=== PATIENT | male | born 1990 | race Caucasian/White ===

== ENCOUNTER → 2020-07-26 15:00 | Outpatient (BNVA) | payer BC, SELFPAY | PROVIDERS: Family Provider Family Medicine; PCP Family Medicine; Visit Provider Family Medicine | DX: R50.9 Fever, unspecified (principal); J40 Bronchitis, not specified as acute or chronic | CPT/HCPCS: 87400; 87635 ==

== ENCOUNTER → 2020-11-21 14:40 | Outpatient (BNVA) | payer BC, SELFPAY | PROVIDERS: Family Provider Family Medicine; PCP Family Medicine; Visit Provider Nurse Practitioner Family | DX: Z20.822 Contact with and (suspected) exposure to COVID-19 (principal) | CPT/HCPCS: 87635 ==

== ENCOUNTER 2020-12-06 15:31 | Inpatient (IN) | payer MEDICAID, SELFPAY ==
[2020-12-06 16:09] VITALS: BP 150/108; PULSE 88; RESP 18; TEMP 36.9; O2SAT 97; BMI 28.3
[2020-12-06 17:15] LABS: Basophils # 0.1 10^3/uL (0.0-0.1); Basophils % 0.6 %; Hematocrit 57.3 % (42.0-52.0); Hemoglobin 20.4 g/dL (11.7-16.6); Lymphocytes # 1.2 10^3/uL (0.8-4.8); Lymphocytes % 13.7 %; Mean Corpuscular HGB Conc 35.6 g/dL (30.0-36.0); Mean Corpuscular Hemoglobin 35.6 pg (28.0-34.0); Mean Platelet Volume 10.4 fL (7.4-10.4); Monocytes # 0.9 10^3/uL (0.2-0.9); Monocytes % 10.9 %; Neutrophils # 6.33 10^3/uL (1.8-7.7); Neutrophils % 74.3 %; Nucleated Red Blood Cells % 0 %; Platelet Count 129 10^3/cmm (130-400); Red Blood Count 5.73 10^6/uL (4.1-5.3); Red Cell Distribution Width 12.2 % (12.1-15.1); White Blood Count 8.5 10^3/uL (4.0-10.0)
[2020-12-06] MEDS: sodium chloride 0.9% 1,000 ML 999 ML IV (17:15)
[2020-12-06 17:22] VITALS: BP 145/102; PULSE 83; RESP 15; O2SAT 96
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
[2020-12-06 17:40] LABS: Add Urine Microscopic? YES; Bacteria Urine TRACE /hpf; Bilirubin Urine 2+ (Negative); Blood Urine Neg (Negative); Glucose Urine UA Norm (Normal); Ketones Urine 1+ (Negative); Leukocyte Esterase Urine Trace (Negative); Mucus Urine 1+ /hpf; Nitrate Urine Negative (Negative); Protein Urine Neg (Negative); Urine Appearance Clear (CLEAR); Urine Color Orange (Yellow); Urobilinogen Urine 4+ mg/dL (Negative); WBC Urine 0-4 /hpf (0-5); pH Urine 7 (5-7)
[2020-12-06 17:41] LABS: Add Urine Culture? No
[2020-12-06 17:45] LABS: Alanine Aminotransferase 233 U/L (0-41); Albumin Level 4.2 g/dL (3.5-5.2); Alkaline Phosphatase 110 IU/L (40-130); Anion Gap 16.5 (5-19); Aspartate Amino Transferase 341 U/L (0-40); Blood Urea Nitrogen 6 mg/dL (6-20); Calcium 9.3 mg/dL (8.5-10.5); Carbon Dioxide 29 mmol/L (22-29); Chloride 99 mmol/L (98-107); Globulin 2.5 g/dL (1.3-4.6); Glomerular Filtration Rate 160.4 mL/min (90-130); Glucose 98 mg/dL (65-115); Lipase 23 U/L (13-60); Magnesium 1.4 mg/dL (1.7-2.3); Osmolality Calculated 290 mOsm/kg (285-295); Potassium 3.5 mmol/L (3.5-5.1); Sodium 141 mmol/L (136-145); Total Bilirubin 5.3 mg/dL (0.15-1.2); Total Protein 6.7 g/dL (6.6-8.7)
[2020-12-06 17:46] LABS: Acetaminophen < 5.0 ug/mL (10-30); Alcohol Level < 10 mg/dL (0-10); Salicylate < 0.3 mg/dL (3-10)
[2020-12-06 17:49] LABS: Creatine Phosphokinase 457 U/L (39-308)
[2020-12-06 18:24] LABS: INR 1.16 (0.8-1.2)
[2020-12-06 18:25] LABS: Partial Thromboplastin Time 32.4 SECONDS (23.9-36.7)
[2020-12-06 18:32] LABS: Ammonia 54 umol/L (16-60)
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
[2020-12-06 19:36] LABS: Hepatitis A Antibody IgM Non-Reactive (Nonreactive); Hepatitis B Core AB, Total Non-Reactive (Nonreactive); Hepatitis B Surface AB 114.4 (11.5-1000); Hepatitis B Surface Antigen Non-Reactive (Nonreactive); Hepatitis C Virus Antibody Non-Reactive (Nonreactive)
[2020-12-06 20:04] VITALS: BP 152/102; PULSE 80; RESP 15; O2SAT 97
[2020-12-06 21:43] LABS: Magnesium 1.5 mg/dL (1.7-2.3)
[2020-12-06 21:59] LABS: Folate Level 2.4 ng/mL (4.5-32.2)
[2020-12-06 22:06] LABS: Amphetamines Screen Urine Negative (Negative); Barbiturates Screen Urine Negative (Negative); Benzodiazepines Screen Urine Negative (Negative); Cocaine Screen Urine Negative (Negative); Opiate Screen Urine Negative (Negative); PCP Screen Urine Negative (Negative); THC Screen Urine Negative (Negative)
[2020-12-07] VITALS (7 sets, daily range): BP systolic 126–161; BP diastolic 82–140; PULSE 59–80; RESP 15–23; TEMP 36.4–36.9; O2SAT 96–97
[2020-12-07] MEDS: LORazepam 2 mg Tablet PO (00:27)
[2020-12-07] MEDS: enoxaparin 40 mg/0.4 mL Syringe SUBCUT (00:28)
[2020-12-07] MEDS: sodium chloride 0.9% 1,000 ML 75 ML IV (00:28)
[2020-12-07] MEDS: chlordiazePOXIDE 25 mg Capsule 50 MG PO (00:45)
[2020-12-07 04:24] LABS: Basophils % 0.5 %; Eosinophils % 0.7 %; Hematocrit 52.4 % (42.0-52.0); Hemoglobin 18.1 g/dL (11.7-16.6); Lymphocytes % 32.7 %; Mean Corpuscular HGB Conc 34.5 g/dL (30.0-36.0); Mean Corpuscular Hemoglobin 35.8 pg (28.0-34.0); Mean Corpuscular Volume 103.8 fL (80-94); Mean Platelet Volume 11.1 fL (7.4-10.4); Monocytes # 0.7 10^3/uL (0.2-0.9); Monocytes % 11.3 %; Neutrophils # 3.27 10^3/uL (1.8-7.7); Neutrophils % 54.5 %; Nucleated Red Blood Cells % 0 %; Platelet Count 108 10^3/cmm (130-400); Red Blood Count 5.05 10^6/uL (4.1-5.3); Red Cell Distribution Width 12.4 % (12.1-15.1)
[2020-12-07 04:52] LABS: Anion Gap 12.1 (5-19); Blood Urea Nitrogen 8 mg/dL (6-20); Calcium 8.8 mg/dL (8.5-10.5); Carbon Dioxide 30 mmol/L (22-29); Chloride 101 mmol/L (98-107); Glomerular Filtration Rate 160.4 mL/min (90-130); Glucose 72 mg/dL (65-115); Osmolality Calculated 287 mOsm/kg (285-295); Potassium 3.1 mmol/L (3.5-5.1); Sodium 140 mmol/L (136-145)
--- NOTE | 2020-12-07 07:46 | P.PN_ITS ---
Vitals/I&O/Wt Last Vital Signs Temp 97.6 F 12/07/20 07:41 Pulse 76 12/07/20 07:41 Resp 17 12/07/20 07:41 BP 161/140 12/07/20 07:41 Pulse Ox 97 12/07/20 07:41 12/06/20 12/07/20 12/07/20 22:59 06:59 14:59 Intake Total 1000 / 1000 202 / 1202 Balance 1000 / 1000 202 / 1202 Weight last 48 hrs Weight 94.801 kg Data : 12/07/20 03:25 12/07/20 03:25 A&P Assessment and plan (1) Hematemesis: Status: Acute (2) Alcohol intoxication: Status: Acute (3) Polycythemia: Status: Acute Additional A&P Information Alcohol withdrawal Last alcoholic drink was around midnight yesterday Patient has been drinking heavily for last 4 years, he wants to quit and change his lifestyle, Admit to RAQU[facility] Saba protocol Start Librium and IV as needed Ativan Hypomagnesemia related to alcoholism: Magnesium repleted, Polycythemia with macrocytosis: This most likely related to alcohol abuse, will start normal saline recheck CBC in the morning, check folate level no history of stroke I would not start aspirin, will need outpatient hematology follow-up, hemoglobin consistently stays above 16, requested erythropoietin level Abnormal transaminases secondary to alcohol hepatic steatosis no active signs of jaundice, patient is endorsing drinking red monster, he is denying hematemesis or hemoptysis, no need of endoscopy at this point, I would cancel GS consult for now, he is hemodynamically stable, hepatitis panel negative, no previous history of portal hypertension, no stigmata of chronic liver disease Full code Cardiac diet DVT prophylaxis Lovenox Coding Level of Care Code Acute 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
[2020-12-07] MEDS: folic acid 1 MG, multivitamin inj 10 ML, thiamine 100 MG in sodium chloride 0.9% 1,000 ML 252.8 MG IV (09:55)
[2020-12-07] MEDS: multivitamin therapeutic Tablet 1 TAB PO (10:00)
[2020-12-07] MEDS: amlodipine 10 mg Tablet PO (10:03)
[2020-12-07] MEDS: potassium chloride ER 20 mEq Tablet 80 MEQ PO (10:04)
[2020-12-07] MEDS: magnesium oxide 400 mg tablet PO (10:05)
[2020-12-07] MEDS: folic acid 1 mg Tablet PO ×2 (10:05→10:11)
[2020-12-07 10:15] LABS: Procalcitonin 0.16 ng/mL (0-0.5); Thyroid Stimulating Hormone 1.39 uIU/mL (0.27-4.20); Vitamin B12 498 pg/mL (232-1245)
[2020-12-07 10:25] LABS: Magnesium 1.8 mg/dL (1.7-2.3)
[2020-12-07] MEDS: thiamine 100 mg Tablet PO (10:25)
--- NOTE | 2020-12-07 10:35 | PC.CHAP ---
Pastoral Care Encounter/Spiritual Assessment Type of Contact [] Declined vehicle body maker visit [] Patient/Family/Request visit [] Outpatient visit [] Follow-up visit [] Physician referral [] Code/Alert [x] Routine visit [] Staff referral [] Actively dying [] Patient sleeping [] Family support [] [] Out of room [] Palliative care [] [] Receiving care in room [] Pre-surgical visit [] Trauma [] Long length of stay [] ICU visit [] Other: Relational/Emotional Strength [] Patient feels connected with others/family/visitors/staff [] Distress [] Loneliness/isolation [] Abandonment Spirituality of Patient [] Person of Kadi [] Attends Buddhism of their Kadi [] Believes in Prayer [] Reads Bible or Hoahaoism materials [] There are Spiritual issues to be addressed Film Mounter Interventions [x] Prayer [x] Active listening [x] Non-anxious presence [x] Spiritual/emotional support [] Crisis/trauma care [] Spiritual counseling [] Bereavement support [] Provided bereavement packet [] Provided Bible/devotional materials [] Provided toy/stuffed animal, coloring book to patient or family member [] Provided Communion [] Anointing/[place] [] Salvation [x] Completed spiritual assessment [] Other: Impact on Illness or Injury [] Angry [] Fearful [] Anxious [] Often cries [] Exhaustion [] Unable to work [] Unable to attend jew [] Unable to walk/stand [] Unable to read [] Unable to drive [] Unable to eat/drink [] Unable to sleep [] Unable to be with family [] Patient intubated [] Other: Summary patient willing to discuss issues... sending male vehicle body maker.. Time spent with patient 10 min
[2020-12-07 10:38] LABS: Iron 265 ug/dL (59-158); Unsaturated Iron Binding < 17 ug/dL (112-347)
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
--- NOTE | 2020-12-07 14:50 | PC.NURSE ---
discharge instructions given and explained.pt verb understanding of instructions.prescriptions furnished by [facility]..meds to beds program.discharged ambulatory to exit.pt's mother to drive pt home.
--- NOTE | 2020-12-07 16:35 | PC.RESP ---
Smoking Cessation information sent to patient.
[2020-12-08 17:39] LABS: Erythropoietin 5.2 mIU/mL (2.6-18.5)
== END 2020-12-07 14:55 | disposition home or self-care (01) | DRG 897 ==
LOC: ER 19:02 → CSU 22:26
PROVIDERS: Family Medicine; Admitting Provider Internal Medicine; Emergency Provider Emergency Medicine; Visit Provider Student in an Organized Health Care Education/Training Program
DX: F10.239 Alcohol dependence with withdrawal, unspecified (principal); D75.1 Secondary polycythemia; E83.42 Hypomagnesemia; D75.89 Other specified diseases of blood and blood-forming organs; R74.01 Elevation of levels of liver transaminase levels; E80.6 Other disorders of bilirubin metabolism; F17.210 Nicotine dependence, cigarettes, uncomplicated; Y90.0 Blood alcohol level of less than 20 mg/100 ml; I10 Essential (primary) hypertension
CPT/HCPCS: 36415; 76705; 80048; 80053; 80306; 80307; 81001; 82140; 82550; 82607; 82668; 82746; 83540; 83550; 83690; 83735; 84145; 84443; 85025; 85610; 85730; 86705; 86706; 86709; 86803; 87340; 96360; 96372; 99285; J1650; J3411; J3475; J3490; J7030

== ENCOUNTER → 2024-07-28 10:30 | Outpatient (BNVA) | payer MEDICAID, SELFPAY | PROVIDERS: PCP Nurse Practitioner Family; Visit Provider Nurse Practitioner Family | DX: I10 Essential (primary) hypertension (principal) | CPT/HCPCS: 80053; 80061; 85025 ==

== ENCOUNTER → 2024-08-24 16:12 | Outpatient (BNVA) | payer MEDICAID, SELFPAY | PROVIDERS: PCP Nurse Practitioner Family; Visit Provider Nurse Practitioner Family | DX: F10.929 Alcohol use, unspecified with intoxication, unspecified (principal) | CPT/HCPCS: 80053; 80307 ==

== ENCOUNTER → 2024-09-07 13:00 | Outpatient (BNVA) | payer MEDICAID, SELFPAY | PROVIDERS: PCP Nurse Practitioner Family; Visit Provider Nurse Practitioner Family | DX: R74.8 Abnormal levels of other serum enzymes (principal) | CPT/HCPCS: 80053 ==

== ENCOUNTER 2024-10-13 19:35 | Inpatient (IN) | payer MEDICAID, SELFPAY ==
[2024-10-13 19:43] VITALS: BP 150/91; PULSE 102; TEMP 36.2; O2SAT 98; BMI 30.3
--- NOTE | 2024-10-13 19:55 | W.ED.PSYCHS ---
HPI - Psych General: Chief Complaint: Psychiatric Symptoms Stated Complaint: MHE Time Seen by Provider: 10/13/24 19:36 Source: patient Mode of arrival: ambulatory Limitations: no limitations History of Present Illness: 33-year-old male with history of alcohol abuse does appear brought by his brother has been having increased alcohol use along with self-harm patient had has depression he denies being SI but he does have multiple fresh lacerations to his left forearm and does admit to cutting himself. Associated symptoms: Reports depression Related Data Previous Rx's ?Medication ?Instructions ?Recorded ibuprofen 800 mg tablet 800 mg PO Q8H PRN pain #20 tabs 12/04/23 lisinopril 10 mg tablet 10 mg PO DAILY #90 tabs 09/07/24 naltrexone 50 mg tablet 50 mg PO DAILY #90 tabs 09/07/24 Allergies Allergy/AdvReac Type Severity Reaction Status Date / Time No Known Allergies Allergy Verified 10/13/24 19:49 Review of Systems Const: Denies: fever(s), chills, body aches or change in appetite ENMT: Denies: throat pain or dental pain Card: Denies: chest pain Resp: Denies: dyspnea GI: Denies: abdominal pain, nausea, vomiting or diarrhea Musc: Denies: neck pain or back pain Skin/Breast: Denies: rash Neuro: Denies: headache(s) Psych: Reports: depression [facility] PFSH: Medical History Hematemesis Bronchitis Surgical History No pertinent past surgical history Family History Other No pertinent family history Social History Smoking and tobacco/nicotine status: current every day tobacco/nicotine user cigarettes [ Other cigarette details: 2 pack a day] Alcohol intake: current Alcohol intake frequency: holidays/special occasions only Substance/Drug Use: never Household members: spouse Housing: House Current occupational status: unemployed 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 [employer] Physical Exam Const: COMMON NORMALS: no acute distress, patient oriented x3 and healthy appearing HENMT: COMMON NORMALS: normocephalic and atraumatic HEAD & SCALP: normocephalic and atraumatic Eye: COMMON NORMALS: conjunctivae normal CONJUNCTIVA: Yes conjunctivae normal Neck/C-Spine: COMMON NORMALS: full ROM and supple Chest: COMMONS NORMALS: normal inspection of the chest Resp: COMMON NORMALS: normal respiratory effort Cardio: COMMON NORMALS: regular rate RATE: regular rate Extremity: COMMON NORMALS: full ROM Neuro: COMMON NORMALS: patient oriented x3, moves all extremities and no focal motor deficits Psych: COMMON NORMALS: mental status grossly normal ATTITUDE: Yes Belligerent attititude/behavior present and Yes agitated Skin: NARRATIVE SKIN EXAM: Multiple lacerations noted to left forearm largest being roughly 5 cm Course Vital Signs: Vital signs: Vital Signs Temperature 97.2 F L 10/13/24 19:43 Pulse Rate 107 H 10/13/24 21:11 Respiratory Rate 18 10/13/24 21:11 Blood Pressure 140/74 10/13/24 21:11 Pulse Oximetry 98 10/13/24 21:11 Oxygen Delivery Me thod Room Air 10/13/24 19:43 MDM - Psych Medical Decision Making Patient presents here with alcohol intoxication along with suicidal ideation he does have a laceration to his left forearm it appears old too old to suture will let it heal by secondary intention did Steri-Strip will admit to [facility] at this time Medical Records I reviewed the patient's medical records. Lab Data I reviewed the patient's lab results. 10/13/24 20:32 10/13/24 20:32 Laboratory Results WBC 6.55 10^3/uL (3.29-11.43) 10/13/24 20:32 RBC 5.03 10^6/uL (3.85-5.65) 10/13/24 20:32 Hgb 15.00 g/dL (11.27-16.99) 10/13/24 20:32 Hct 44.6 % (37-53) 10/13/24 20:32 MCV 88.7 fl (82-101) 10/13/24 20:32 MCH 29.8 pg (27-33) 10/13/24 20:32 MCHC 33.6 g/dL (30-55) 10/13/24 20:32 RDW 13.8 % (12.1-15.1) 10/13/24 20:32 Plt Count 179 10^3/cmm (157-399) 10/13/24 20:32 MPV 9.9 fL (7.4-10.4) 10/13/24 20:32 Neut % (Auto) 50.1 % 10/13/24 20:32 Lymph % (Auto) 42.4 % 10/13/24 20: [place] % (Auto) 6.4 % 10/13/24 20: Eos % (Auto) 0.3 % 10/13/24 20:32 Baso % (Auto) 0.5 % 10/13/24: Neut # (Auto) 3.28 10^3/uL (1.8-7.7) 10/13/24: Lymph # (Auto) 2.8 10^3/uL (0.8-4.8) 10/13/24 20: [place] # (Auto) 0.4 10^3/uL (0.2-0.9) 10/13/24: Eos # (Auto) 0.0 10^3/uL (0.0-0.8) 10/13/24: Baso # (Auto) 0.0 10^3/uL (0.0-0.1) 10/13/24: Nucleated RBC % (auto) 0 % 10/13/24: Nucleated RBCs # 0.0 /100WBC 10/13/24 20:32 Sodium 144 mmol/L (136-145) 10/13/24 20: Potassium 3.5 mmol/L (3.5-5.1) 10/13/24 20: Chloride 108 mmol/L (98-107) H 10/13/24 20:32 BUN 8 mg/dL (6-20) 10/13/24 20:32 Creatinine 0.9 mg/dL (0.7-1.2) 10/13/24 20: GFR Calculation 98.4 mL/min (90-130) 10/13/24 20: Glucose 108 mg/dL (65-115) 10/13/24 20:32 Calculated Osmolality 297 mOsm/kg (285-295) H 10/13/24 20: Calcium 8.7 mg/dL (8.5-10.5) 10/13/24 20:32 Total Bilirubin 1.1 mg/dL (0.15-1.2) 10/13/24 20:32 AST 41 U/L (0-40) H 10/13/24 20:32 ALT 63 U/L (0-41) H 10/13/24 20:32 Alkaline Phosphatase 70 U/L (40-130) 10/13/24 20:32 Total Protein 7.3 g/dL (6.6-8.7) 10/13/24 20:32 Albumin 4.4 g/dL (3.5-5.2) 10/13/24 20:32 Globulin 2.9 g/dL (1.3-4.6) 10/13/24 20:32 Salicylates < 0.3 mg/dL (3-10) L 10/13/24 20:32 Acetaminophen < 5.0 ug/mL (10-30) L 10/13/24 20:32 Ethyl Alcohol 275 mg/dL (0-10) H 10/13/24 20:32 No radiology studies performed this visit Discharge Plan Discharge Patient Disposition: Admitted As Inpatient Admit Provider: Jimi Kim Clinical Impression: Alcohol abuse, Suicidal ideation Condition: Stable Coding Level of Care Code ED Rib Knitter for [facility]
[2024-10-13] MEDS: LORazepam 2 mg/mL INJ 1 mL 1 MG IM (20:43)
[2024-10-13] MEDS: nicotine 21 mg Patch 1 PATCH TRANSDERMA (20:43)
[2024-10-13 20:52] LABS: Alanine Aminotransferase 63 U/L (0-41); Albumin Level 4.4 g/dL (3.5-5.2); Alcohol Level 275 mg/dL (0-10); Alkaline Phosphatase 70 U/L (40-130); Aspartate Amino Transferase 41 U/L (0-40); Blood Urea Nitrogen 8 mg/dL (6-20); Calcium 8.7 mg/dL (8.5-10.5); Chloride 108 mmol/L (98-107); Creatinine Clr Calc Pharmacy 150.8345; Globulin 2.9 g/dL (1.3-4.6); Glomerular Filtration Rate 98.4 mL/min (90-130); Glucose 108 mg/dL (65-115); Osmolality Calculated 297 mOsm/kg (285-295); Potassium 3.5 mmol/L (3.5-5.1); Sodium 144 mmol/L (136-145); Total Bilirubin 1.1 mg/dL (0.15-1.2); Total Protein 7.3 g/dL (6.6-8.7)
--- NOTE | 2024-10-13 20:54 | PC.NURSE ---
When pt was told that he would be placed on a 96 hour hold he began to become verbally aggressive, wanting to leave. [employer] supervisor and security was contacted. [employer] supervisor was able to talk with the pt and educate him on the reasons of why we have him on a hold. pt calmed down, changed into scrubs and allowed us to take blood and urine. pt is currently sitting in the pineda recliner eating a sandwich.
[2024-10-13 20:57] LABS: Basophils % 0.5 %; Eosinophils % 0.3 %; Hematocrit 44.6 % (37-53); Lymphocytes # 2.8 10^3/uL (0.8-4.8); Lymphocytes % 42.4 %; Mean Corpuscular HGB Conc 33.6 g/dL (30-55); Mean Corpuscular Hemoglobin 29.8 pg (27-33); Mean Corpuscular Volume 88.7 fl (82-101); Mean Platelet Volume 9.9 fL (7.4-10.4); Monocytes # 0.4 10^3/uL (0.2-0.9); Monocytes % 6.4 %; Neutrophils # 3.28 10^3/uL (1.8-7.7); Neutrophils % 50.1 %; Nucleated Red Blood Cells % 0 %; Platelet Count 179 10^3/cmm (157-399); Red Blood Count 5.03 10^6/uL (3.85-5.65); Red Cell Distribution Width 13.8 % (12.1-15.1); White Blood Count 6.55 10^3/uL (3.29-11.43)
[2024-10-13 20:58] LABS: Acetaminophen < 5.0 ug/mL (10-30); Salicylate < 0.3 mg/dL (3-10)
--- NOTE | 2024-10-13 20:58 | PC.NURSE ---
96 Hour Hold Pt served with copy of 96 HH by this RN and security. Pt alert and oriented. After extensive 1:1 conversation, pt stated the he did cut himself on his left forearm.
--- NOTE | 2024-10-13 21:04 | PC.NURSE ---
Pt has a an approximately 5cm lac on his left forearm. the laceration was cleaned with betadine and peroxide. steri strips were applied.
[2024-10-13 21:11] VITALS: BP 140/74; PULSE 107; RESP 18; O2SAT 98
[2024-10-13 21:19] VITALS: BP 154/70; PULSE 106; RESP 18; TEMP 36.6; O2SAT 98
[2024-10-13 22:00] VITALS: BP 154/70; PULSE 106; RESP 18; TEMP 36.6; O2SAT 98
[2024-10-13 22:09] LABS: Amphetamines Screen Urine Negative (Negative); Barbiturates Screen Urine Negative (Negative); Benzodiazepines Screen Urine Negative (Negative); Cocaine Screen Urine Negative (Negative); Opiate Screen Urine Negative (Negative); PCP Screen Urine Negative (Negative); THC Screen Urine Negative (Negative)
[2024-10-13 22:37] LABS: Anion Gap 18.5 (5-19); Carbon Dioxide 21 mmol/L (22-29)
--- NOTE | 2024-10-13 23:33 | PC.ADMIT ---
[address] [facility] Ad[facility] Note: The patient,Farhad Dewitt,33 y/o, was given written information regarding hospital policies, unit procedures and contact persons. Patient's smoking status: current every day smoker. Vital Signs - 8 hr 10/13/24 19:43 10/13/24 21:11 10/13/24 21:19 Temperature 97.2 F L 97.9 F Pulse Rate 102 H 107 H 106 H Respiratory Rate 18 18 Blood Pressure 150/91 140/74 154/70 Pulse Oximetry 98 98 98 Oxygen Delivery Method Room Air Room Air 10/13/24 21:22 10/13/24 22:00 Temperature 97.9 F Pulse Rate 106 H Respiratory Rate 18 Blood Pressure 154/70 Pulse Oximetry 98 Oxygen Delivery Method Room Air Room Air Pt. came into the ER because he was looking for the crisis center, but it was closed. Pt. has a 5cm cut on his left FA, it is not deep. Pt. was drinking a lot tonight and stated he does have a problem with alcohol and would like help to quit, but he does not want to to inpatient to get the help. Pt. says he is a single father with full custody of his 3 children, says he has a great support system (his parents). In report the ER nurse said that at first pt. was very upset about being placed on a 96 hr hold, but calmed down and later apologized for his behavior. His alcohol level was 275.
--- NOTE | 2024-10-13 23:37 | PC.NURSE ---
Pt. came into the ER because he was looking for the crisis center, but it was closed. Pt. has a 5cm cut on his left FA, it is not deep. Pt. was drinking a lot tonight and stated he does have a problem with alcohol and would like help to quit, but he does not want to to inpatient to get the help. Pt. says he is a single father with full custody of his 3 children, says he has a great support system (his parents). In report the ER nurse said that at first pt. was very upset about being placed on a 96 hr hold, but calmed down and later apologized for his behavior. His alcohol level was 275.
[2024-10-14] VITALS: BP 109/66; PULSE 110; RESP 18; TEMP 36.7; O2SAT 96
[2024-10-14 04:00] VITALS: BP 128/77; PULSE 89; RESP 18; TEMP 36.5; O2SAT 96
[2024-10-14 07:51] VITALS: BP 142/90; PULSE 83; RESP 16; TEMP 36.8; O2SAT 95
[2024-10-14] MEDS: folic acid 1 mg Tablet PO (08:27)
[2024-10-14] MEDS: multivitamin therapeutic Tablet 1 TAB PO (08:27)
[2024-10-14] MEDS: nicotine 4 mg lozenge MUCOUS MEM (08:27)
[2024-10-14] MEDS: thiamine 100 mg Tablet PO (08:27)
--- NOTE | 2024-10-14 09:09 | W.PM.NPUH&PS ---
Providers/Chief Complaint Admitting Physician: Jimi Kim MD Primary Care Provider: Leisa Dixon NP Chief Complaint: MHE- Friend Said SI HPI NPU History of Present Illness Farhad Dewitt is a 33 year old male who presented to the emergency department with a blood alcohol level of 275. The patient had reported a significant history of alcohol abuse since the age of 19. He had reported that previously he had been drinking 1/5 of whiskey a night several years ago but states that he had been in remission for almost 2 years until beginning alcohol consumption again in 2022. He reports that he has not had an increase in tolerance and reports that he wishes to get help with his alcohol use as he has described it as being excessive. He had reported some medical consequences from the use of alcohol including elevated liver function tests. He had reported no past history of alcohol related withdrawal symptoms. Previous records were reviewed and showed that the patient had previously been here 4 years ago for alcohol abuse. He reports that he had under the influence of alcohol yesterday cut himself in the left forearm but stated that he did not have any intention on harming himself. He had reported at times when he is using alcohol that he will cut himself but reports that he has no thoughts of suicide. He denied any history of indra. He denied any history of depression. He had reported that he had been on naltrexone over the last month and continues to report having cravings for alcohol. He denies any symptoms of anxiety. He reports no other substance use stating that he does not abuse stimulants or opiates. He had reported no increased problems at home as he states he is a single father of 3 children under the age of 10. He reports that he has social support from family members who do believe that the patient has problems with alcohol use. He had denied any current legal problems. He denied any history of delirium tremens, seizures, or blackouts. He reports no sleep disturbance currently. He denied any history of ADHD symptoms. He denied any history of an eating disorder. He denied any history of a depressed episode. He denied any history of indra or psychosis. Psychiatric history: Patient reports no inpatient psychiatric hospitalizations. He had reported no previous history of outpatient psychiatric treatment as well. Substance abuse history: He had reported a history of use of marijuana 3 times and reported having a panic attack and never using again. He had reported using alcohol beginning at the age of 19 and reported continued daily use for many years with a history of 2-year sobriety from [id number]. He reports no history of substance abuse treatment either inpatient or outpatient. He denies any history of opiates stimulants or hallucinogens. He had reported no history of withdrawal symptoms. Medical history: Hypertension, elevated liver function test. Surgical history: Left armpit surgery for cyst removal Allergies: nkda Medications: Lisinopril 10 mg daily, naltrexone 50 mg daily, ibuprofen 800 mg as needed for pain Legal history: None currently although he had reported having no m[facility]p time, he has had 2 previous DUIs but has regained his license. history: None Family psychiatric history: None Social history: Patient was born and raised in [place]. His parents were never and he had been abandoned by the father at . He reports he is the middle child among 5 siblings. He had reported no problems academically in school with no history of developmental issues. He had denied any history of sexual, physical or emotional abuse. The patient had reported to having a happy childhood. He had reported having graduated high school and attended 1 year of college. 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 He has been for 5 years and reported a difficult custody munoz as his ex- had struggled with substance use. He has full custody of his 3 children ages 9 6 and 5 respectively. He reports that while working his mother lives nearby and provides some support for the children. He reports no current financial issues. Meds NPU Home Medications ?Medication ?Instructions ?Recorded ?Confirmed ?Last Taken ?Type ibuprofen 800 mg tablet 800 mg PO Q8H PRN pain #20 tabs 12/04/23 10/14/24 Unknown Rx lisinopril 10 mg tablet 10 mg PO DAILY #90 tabs 09/07/24 10/14/24 Unknown Rx naltrexone 50 mg tablet 50 mg PO DAILY #90 tabs 09/07/24 10/14/24 Unknown Rx Allergies Allergy/AdvReac Type Severity Reaction Status Date / Time No Known Allergies Allergy Verified 10/13/24 19:49 PFSH NPU PFSH: Medical History Hematemesis Bronchitis Surgical History No pertinent past surgical history Family History Other No pertinent family history Social History Smoking and tobacco/nicotine status: current every day tobacco/nicotine user cigarettes [ Other cigarette details: 2 pack a day] Alcohol intake: current Alcohol intake frequency: holidays/special occasions only Substance/Drug Use: never Household members: spouse Housing: House Current occupational status: unemployed 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 He appeared in no acute distress. His gait was within normal limits. His hygiene was fair. There was no evidence of any abnormal involuntary motor movements, tics, or tremors appreciated. His speech was normal in regards to rate rhythm and prosody. His mood was described as good. His affect appeared euthymic. His thought process was linear logical and goal-directed. His thought content showed no evidence of homicidal or suicidal ideation. He did not appear to be responding to internal stimuli. There was no evidence of delusional thinking. His attention span appeared good. He was alert and oriented to person place and time. His recent and remote memory were grossly intact. He was a good historian. His insight was fair. His judgment was limited. His impulse control appeared adequate. There were clear single cuts appreciated on his left forearm that appeared to be healing. Vitals/I&O/Wt Last Vital Signs Temp 98.3 F 10/14/24 07:51 Pulse 83 10/14/24 07:51 Resp 16 10/14/24 07:51 BP 142/90 10/14/24 07:51 Pulse Ox 95 10/14/24 07:51 O2 Del Method Room Air 10/14/24 04:00 Weight last 48 hrs Weight 104.326 kg Data NPU 10/13/24 20:32 10/13/24 20:32 A&P Assessment and plan (1) Alcohol abuse with alcohol-induced mood disorder: (2) Alcohol abuse: (3) Suicidal ideation: (4) Alcohol intoxication: Plan 33-year-old male with a history of alcohol abuse with no history of alcohol-related withdrawal symptoms admitted after engaging in 1 active self injury with the patient allegedly endorsing suicidal ideation that the patient now denies. #1.? Engage patient in individual milieu and group therapy. #2?? Recommend sober living treatment at the highest level of care to which the patient is willing to commit #3??? CIWA for alcohol withdrawal #4?? TO-15 minute checks? #5?? Will attempt to gather collateral information. #6 Restart outpatient medication regimen. PDMP PDMP Reviewed: Not Reviewed Involuntary Hold Information Hold Status: Legal Status: 96 Hour Hold Date/Time Hold Expires: 10/19/24@2000 Attestations NPU Medical Necessity Statement*: Inpatient hospitalization is medically necessary and deemed to ?be ?the clinically appropriate intervention ?at this time.? We will monitor/initiate medications and make changes as indicated.? The patient will be in the hospital for over 2 midnights.? The patient?s likely length of stay 1-2 days. Coding Level of Care Code Acute Code for [facility] Fwd Diagnoses Alcohol abuse with alcohol-induced mood disorder F10.14 Alcohol abuse F10.10 Suicidal ideation R45.851 Alcohol intoxication F10.929
[2024-10-14] MEDS: nicotine 21 mg Patch 1 PATCH TRANSDERMA (10:46)
[2024-10-14 12:00] VITALS: BP 115/113; PULSE 90; RESP 18; TEMP 37.2; O2SAT 99
[2024-10-14 15:52] VITALS: BP 151/104; PULSE 93; RESP 17; TEMP 37.2; O2SAT 98
--- NOTE | 2024-10-14 16:10 | P.NPUDS_ITS ---
Diagnoses at Discharge Discharge Diagnosis (1) Alcohol abuse with alcohol-induced mood disorder: Status: Acute (2) Alcohol abuse: Status: Acute (3) Suicidal ideation: Status: Acute (4) Alcohol intoxication: Status: Acute Reason for Visit Reason for Visit: MHE- Friend Said SI Brief History: History of Present Illness Farhad Dewitt is a 33 year old male who presented to the emergency department with a blood alcohol level of 275. The patient had reported a significant history of alcohol abuse since the age of 19. He had reported that previously he had been drinking 1/5 of whiskey a night several years ago but states that he had been in remission for almost 2 years until beginning alcohol consumption again in 2022. He reports that he has not had an increase in tolerance and reports that he wishes to get help with his alcohol use as he has described it as being excessive. He had reported some medical consequences from the use of alcohol including elevated liver function tests. He had reported no past history of alcohol related withdrawal symptoms. Previous records were reviewed and showed that the patient had previously been here 4 years ago for alcohol abuse. He reports that he had under the influence of alcohol yesterday cut himself in the left forearm but stated that he did not have any intention on harming himself. He had reported at times when he is using alcohol that he will cut himself but reports that he has no thoughts of suicide. He denied any history of indra. He denied any history of depression. He had reported that he had been on naltrexone over the last month and continues to report having cravings for alcohol. He denies any symptoms of anxiety. He reports no other substance use stating that he does not abuse stimulants or opiates. He had reported no increased problems at home as he states he is a single father of 3 children under the age of 10. He reports that he has social support from family members who do believe that the patient has problems with alcohol use. He had denied any current legal problems. He denied any history of delirium tremens, seizures, or blackouts. He reports no sleep disturbance currently. He denied any history of ADHD symptoms. He denied any history of an eating disorder. He denied any history of a depressed episode. He denied any history of indra or psychosis. Psychiatric history: Patient reports no inpatient psychiatric hospitalizations. He had reported no previous history of outpatient psychiatric treatment as well. Substance abuse history: He had reported a history of use of marijuana 3 times and reported having a panic attack and never using again. He had reported using alcohol beginning at the age of 19 and reported continued daily use for many years with a history of 2-year sobriety from [id number]. He reports no history of substance abuse treatment either inpatient or outpatient. He denies any history of opiates stimulants or hallucinogens. He had reported no history of withdrawal symptoms. Medical history: Hypertension, elevated liver function test. Surgical history: Left armpit surgery for cyst removal Allergies: nkda Medications: Lisinopril 10 mg daily, naltrexone 50 mg daily, ibuprofen 800 mg as needed for pain Legal history: None currently although he had reported having no half-way time, he has had 2 previous DUIs but has regained his license. history: None Family psychiatric history: None Social history: Patient was born and raised in [place]. His parents were never and he had been abandoned by the father at . He reports he is the middle child among 5 siblings. He had reported no problems academically in school with no history of developmental issues. He had denied any history of sexual, physical or emotional abuse. The patient had reported to having a happy childhood. He had reported having graduated high school and attended 1 year of college. 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 He has been for 5 years and reported a difficult custody munoz as his ex- had struggled with substance use. He has full custody of his 3 children ages 9 6 and 5 respectively. He reports that while working his mother lives nearby and provides some support for the children. He reports no current financial issues. Hospital Course Hospital Course During the hospitalization, the patient had routine laboratory studies which were within normal limits except for a few outliers.? Additionally, there was a general medical evaluation which was also within normal limits and revealed no new acute processes.? At the time of discharge, lethality was denied.? Mood and anxiety were well managed.? The patient endorsed a plan to avoid all drugs of abuse and follow up with the aftercare recommendations of the treatment team.? The patient was evaluated and deemed to be absent credible lethality and had achieved the maximum benefit from an inpatient hospitalization, and so was discharged. ?The patient was agreeable to outpatient treatment for alcohol dependence and a trial of Vivitrol in place of naltrexone oral to target cravings for alcohol. Involuntary Hold Information Hold Status: Legal Status: 96 Hour Hold Date/Time Hold Expires: 10/19/24@2000 Mental Status Exam MSE Comments: Patient is a casually dressed white male who was friendly and cooperative on interview. He appeared in no acute distress. His gait was within normal limits. His hygiene was fair. There was no evidence of any abnormal involuntary motor movements, tics, or tremors appreciated. His speech was normal in regards to rate rhythm and prosody. His mood was described as good. His affect appeared euthymic. His thought process was linear logical and goal- directed. His thought content showed no evidence of homicidal or suicidal ideation. He did not appear to be responding to internal stimuli. There was no evidence of delusional thinking. His attention span appeared good. He was alert and oriented to person place and time. His recent and remote memory were grossly intact. He was a good historian. His insight was fair. His judgment was limited. His impulse control appeared adequate. There were clear single cuts appreciated on his left forearm that appeared to be healing. Discharge Data Studies Completed and Pending: Laboratory Results WBC 6.55 10^3/uL (3.2 9-11.43) 10/13/24 20:32 RBC 5.03 10^6/uL (3.8 5-5.65) 10/13/24 20:32 Hgb 15.00 g/dL (11.27 -16.99) 10/13/24 20:32 Hct 44.6 % (37-53) 10/13/24 20:32 MCV 88.7 fl (82-101) 10/13/24 20:32 MCH 29.8 pg (27-33) 10/13/24 20:32 MCHC 33.6 g/dL (30-55) 10/13/24 20:32 RDW 13.8 % (12.1-15.1 ) 10/13/24 20:32 Plt Count 179 10^3/cmm (157 -399) 10/13/24 20:32 MPV 9.9 fL (7.4-10.4) 10/13/24 20:32 Neut % (Auto) 50.1 % 10/13/24 20:32 Lymph % (Auto) 42.4 % 10/13/24 20:32 [place] % (Auto) 6.4 % 10/13/24 20:32 Eos % (Auto) 0.3 % 10/13/24 20:32 Baso % (Auto) 0.5 % 10/13/24 20:32 Neut # (Auto) 3.28 10^3/uL (1.8 -7.7) 10/13/24 20:32 Lymph # (Auto) 2.8 10^3/uL (0.8- 4.8) 10/13/24 20:32 [place] # (Auto) 0.4 10^3/uL (0.2- 0.9) 10/13/24:32 Eos # (Auto) 0.0 10^3/uL (0.0- 0.8) 10/13/24: Baso # (Auto) 0.0 10^3/uL (0.0- 0.1) 10/13/24: Nucleated RBC % (a uto) 0 % 10/13/24: Nucleated RBCs # 0.0 /100WBC 10/13/24 20:32 Sodium 144 mmol/L (136-1 45) 10/13/24 20:32 Potassium 3.5 mmol/L (3.5-5 .1) 10/13/24 20: Chloride 108 mmol/L (98-10 7) H 10/13/24 20:32 Carbon Dioxide 21 mmol/L (22-29) L 10/13/24 20:32 Anion Gap 18.5 (5-19) 10/13/24 20:32 BUN 8 mg/dL (6-20) 10/13/24 20:32 Creatinine 0.9 mg/dL (0.7-1. 2) 10/13/24 20:32 GFR Calculation 98.4 mL/min (90-1 30) 10/13/24 20:32 Glucose 108 mg/dL (65-115 ) 10/13/24 20:32 Calculated Osmolal ity 297 mOsm/kg (285- 295) H 10/13/24 20:32 Calcium 8.7 mg/dL (8.5-10 .5) 10/13/24 20:32 Total Bilirubin 1.1 mg/dL (0.15-1 .2) 10/13/24 20:32 AST 41 U/L (0-40) H 10/13/24 20:32 ALT 63 U/L (0-41) H 10/13/24 20:32 Alkaline Phosphata se 70 U/L (40-130) 10/13/24 20:32 Total Protein 7.3 g/dL (6.6-8.7 ) 10/13/24 20:32 Albumin 4.4 g/dL (3.5-5.2 ) 10/13/24 20:32 Globulin 2.9 g/dL (1.3-4.6 ) 10/13/24 20:32 Salicylates < 0.3 mg/dL (3-10 ) L 10/13/24 20:32 Urine Opiates Scre en Negative ng/mL (N egative) 10/13/24 21:30 Acetaminophen < 5.0 ug/mL (10-3 0) L 10/13/24 20:32 Ur Barbiturates Sc reen Negative ng/mL (N egative) 10/13/24 21:30 Ur Phencyclidine S crn Negative ng/mL (N egative) 10/13/24 21:30 Ur Amphetamines Sc reen Negative ng/mL (N egative) 10/13/24 21:30 U Benzodiazepines Scrn Negative ng/mL (N egative) 10/13/24 21:30 Urine Cocaine Scre en Negative ng/mL (N egative) 10/13/24 21:30 U Marijuana (THC) Screen Negative ng/mL (N egative) 10/13/24 21:30 Ethyl Alcohol 275 mg/dL (0-10) H 10/13/24 20:32 Vitals: Last Vital Signs Temp 99 F 10/14/24 15:52 Pulse 93 10/14/24 15:52 Resp 17 10/14/24 15:52 BP 151/104 10/14/24 15:52 Pulse Ox 98 10/14/24 15:52 O2 Del Method Room Air 10/14/24 04:00 Discharge Plan Discharge Patient Disposition: Home Condition: Stable Prescriptions: New Vivitrol 380 mg suspension,extended rel recon 380 mg IM ONCE 28 Days Qty: 1 1RF Continued naltrexone 50 mg tablet 50 mg PO DAILY Qty: 90 0RF Rx Instructions: take daily with food. lisinopril 10 mg tablet 10 mg PO DAILY Qty: 90 0RF ibuprofen 800 mg tablet 800 mg PO Q8H PRN (Reason: pain) Qty: 20 0RF Discharge Orders: Discharge Order (Routine); Ordered 10/14/24 Ordered By: Jimi Kim Referrals: [facility] [Other] Leisa Dixon [employer] [Primary Care Provider] - 10/21/24 1:15 pm (Hospital follow up) Discharge Diet: Usual diet Discharge Activity: Resume usual activity Patient Instructions: Opioid Safety Discharge Attestations NPU Time Spent in Discharge Care*: less than 30 min Status at Discharge: Cognitive status at discharge: cognitively intact , Behavioral status at discharge: cooperative , Coding Level of Care Code Acute Code for Chg Fwd Diagnoses Alcohol abuse with alcohol-induced mood disorder F10.14 Alcohol abuse F10.10 Suicidal ideation R45.851 Alcohol intoxication F10.929
[2024-10-14 16:34] VITALS: BP 151/104; PULSE 93; RESP 17; TEMP 37.2; O2SAT 98
== END 2024-10-14 17:57 | disposition home or self-care (01) | DRG 897 ==
LOC: ER 20:26 → NP 21:06
PROVIDERS: Admitting Provider Psychiatry & Neurology Psychiatry; Emergency Provider Emergency Medicine; PCP Nurse Practitioner Family; Visit Provider Psychiatry & Neurology Psychiatry
DX: F10.129 Alcohol abuse with intoxication, unspecified (principal); R45.851 Suicidal ideations; Y90.8 Blood alcohol level of 240 mg/100 ml or more; F10.14 Alcohol abuse with alcohol-induced mood disorder; R45.88 Nonsuicidal self-harm; S51.812A Laceration without foreign body of left forearm, initial encounter; X58.XXXA Exposure to other specified factors, initial encounter; F17.210 Nicotine dependence, cigarettes, uncomplicated; I10 Essential (primary) hypertension; R74.8 Abnormal levels of other serum enzymes
CPT/HCPCS: 80053; 80306; 80307; 85025; 96372; 97150; 97165; 99285; J2060; J9999